=== PATIENT | female | born 1990 | race Two or more races ===

== ENCOUNTER 2022-01-29 13:13 | Emergency (ER) | payer BC ==
[2022-01-29 13:40] VITALS: BP 131/68; PULSE 97; TEMP 98; BMI 33.9
[2022-01-29] MEDS ORDERED: ACETAMINOPHEN 500 MG TABLET (FP) PO ONE (15:42)
[2022-01-29 18:58] LABS: BASO % 0.2 % (0-2.0); EOS % 0.1 % (0-4.5); HEMATOCRIT 31.3 % (32.4-45.2); HEMOGLOBIN 9.9 GM/dL (10.7-15.3); LYMPH % 4.2 % (8-40); MCH 20.1 pg (25.7-33.7); MCHC 31.7 g/dl (32.0-36.0); MEAN CELL VOLUME 63.4 fl (80-96); MEAN PLT VOLUME 8.4 fl (7.5-11.1); MONO % 8.8 % (3.8-10.2); NEUT % 86.7 % (42.8-82.8); PLATELET COUNT 345 10^3/uL (134-434); RBC 4.94 M/mm3 (3.60-5.2); RDW 21.9 % (11.6-15.6); WHITE BLOOD COUNT 5.2 K/mm3 (4.0-10.0)
[2022-01-29 19:29] LABS: BLOOD UREA NITROGEN 6.1 mg/dL (7-18); CALCIUM 9.2 mg/dL (8.5-10.1)
[2022-01-29 19:33] LABS: ANISOCYTOSIS 3+; CREATININE 0.6 mg/dL (0.55-1.3); MACROCYTOSIS 0; OVALOCYTE 1+; TARGET CELLS 1+
[2022-01-29 19:41] LABS: HCG,QUALITATIVE URINE Positive
[2022-01-29] MEDS ORDERED: ACETAMINOPHEN 500 MG TABLET (FP) ONE (19:57)
[2022-01-29 20:05] LABS: EPI CELLS 34 /uL (0-25.1); HYALINE CASTS 5 /uL (0-3.1); PH,URINE 5.5 (5.0-8.0); URINE APPEARANCE CLOUDY; URINE BACTERIA 1099 /uL (0-1359); URINE BILIRUBIN NEGATIVE (NEGATIVE); URINE COLOR YELLOW; URINE GLUCOSE (UA) NEGATIVE (NEGATIVE); URINE KETONE 1+ (NEGATIVE); URINE LEUK ESTERASE 1+ (NEGATIVE); URINE NITRITE NEGATIVE (NEGATIVE); URINE PROTEIN TRACE (NEGATIVE); URINE RBC 18 /uL (0-23.9); URINE UROBILINOGEN 0.2 mg/dL (0.2-1.0); URINE WBC 60 /uL (0-25.8)
== END 2022-01-29 22:11 | disposition home or self-care (01) ==
LOC: JER 13:13
DX: O26.891 Other specified pregnancy related conditions, first trimester (principal); R10.9 Unspecified abdominal pain; Z3A.01 Less than 8 weeks gestation of pregnancy
CPT/HCPCS: 36415; 76817-TC; 80048; 81003; 84702; 84703; 85025; 86850; 86900; 86901; 87086; 99284-25

== ENCOUNTER 2022-05-17 22:39 | Emergency (ER) | payer BC ==
[2022-05-17 22:49] VITALS: BMI 34.8
[2022-05-18 01:56] VITALS: BP 124/62; PULSE 69; RESP 16; TEMP 97.9
== END 2022-05-18 01:36 | disposition home or self-care (01) ==
LOC: JER 22:39
DX: O20.8 Other hemorrhage in early pregnancy (principal); Z3A.23 23 weeks gestation of pregnancy
CPT/HCPCS: 99283-25

== ENCOUNTER 2022-09-25 08:00 | Inpatient (IN) | payer BC ==
[2022-09-25] MEDS ORDERED: CEFAZOLIN 2 GM in DEXTROSE 5%-WATER - 50 ML IVPB ONE (08:52)
[2022-09-25] MEDS ORDERED: CEFAZOLIN 1 GM/D5W 1 GM/50 ML BAG IVPB SCH (10:00)
[2022-09-25] MEDS ORDERED: AMPICILLIN - 2 GM in SODIUM CHLORIDE 100 ML IVPB ONE (10:14)
[2022-09-25 10:20] VITALS: BMI 38.5
[2022-09-25] MEDS: OXYTOCIN 30 UNITS in 0.9% NS 30 UNIT/500 ML INFUS.BAG IVPB SCH (10:30)
[2022-09-25] MEDS: ELECTROLYTE-148 SOLN 1,000 ML IV SCH (10:30)
[2022-09-25] MEDS ORDERED: DINOPROSTONE 10 MG VAGINAL SUPPOSITORY VG ONE (10:45)
[2022-09-25] MEDS ORDERED: AMPICILLIN SODIUM 2 GM VIAL ONE (16:53)
[2022-09-25] MEDS ORDERED: AMPICILLIN SODIUM 1 GM VIAL ONE (21:31)
[2022-09-25] MEDS: AMPICILLIN - 1 GM in SODIUM CHLORIDE 100 ML IVPB SCH (21:37)
[2022-09-26] MEDS ORDERED: SODIUM CHLORIDE 200 ML IVPB ONE (01:13)
[2022-09-26] MEDS ORDERED: AMPICILLIN SODIUM 1 GM VIAL ONE ×4 (01:13→15:06)
[2022-09-26] MEDS: AMPICILLIN - 1 GM in SODIUM CHLORIDE 100 ML IVPB SCH ×8 (01:21→23:28)
[2022-09-26] MEDS ORDERED: SODIUM CHLORIDE 100 ML IVPB ONE (05:13)
[2022-09-26] MEDS: ELECTROLYTE-148 SOLN 1,000 ML IV SCH (15:00)
[2022-09-26] MEDS ORDERED: ACETAMINOPHEN 325 MG TABLET (FP) ONE (16:22)
[2022-09-26] MEDS ORDERED: CITRIC ACID/SODIUM CITRATE 30 ML UNIT-DOSE CUP PO ONE (17:34)
[2022-09-26] MEDS ORDERED: ACETAMINOPHEN 325 MG TABLET (FP) PO ONE (17:34)
[2022-09-26] MEDS ORDERED: CEFAZOLIN SODIUM 2 GM VIAL ONE (18:25)
[2022-09-26] MEDS ORDERED: OXYTOCIN 20 UNITS in 0.9% NS 20 UNIT/1,000 ML INFUS.BAG IV ONE (18:25)
[2022-09-26] MEDS ORDERED: morphine SULFATE (PF) 1 MG/2 ML SYRINGE ONE (18:27)
[2022-09-26] MEDS ORDERED: FENTANYL CITRATE/PF 50 MCG/ML VIAL ONE (18:27)
[2022-09-26] MEDS ORDERED: ONDANSETRON 4 MG/2 ML VIAL ONE (18:27)
[2022-09-26] MEDS ORDERED: KETOROLAC TROMETHAMINE 30 MG/1 ML VIAL ONE (18:27)
[2022-09-26] MEDS ORDERED: OXYTOCIN 10 UNITS/ML VIAL ONE (18:53)
[2022-09-26] MEDS ORDERED: METHYLERGONOVINE MALEATE 0.2 MG/1 ML AMP IM PRN (19:54)
[2022-09-26] MEDS ORDERED: ONDANSETRON 4 MG/2 ML VIAL IVPUSH PRN (19:56)
[2022-09-26] MEDS ORDERED: IBUPROFEN 800 MG/8 ML IJ IVPB PRN ×2 (19:57→23:49)
[2022-09-26] MEDS ORDERED: ACETAMINOPHEN 1000 MG/100 ML BAG IVPB SCH (20:00)
[2022-09-26] MEDS ORDERED: OXYTOCIN 20 UNITS in 0.9% NS 20 UNIT/1,000 ML INFUS.BAG IV SCH (20:00)
[2022-09-26] MEDS ORDERED: IBUPROFEN 800 MG/8 ML IJ IVPB SCH (20:00)
[2022-09-26] MEDS: OXYTOCIN 30 UNITS in 0.9% NS 30 UNIT/500 ML INFUS.BAG IVPB SCH (23:27)
[2022-09-26] MEDS ORDERED: ACETAMINOPHEN 1000 MG/100 ML BAG IVPB PRN (23:49)
[2022-09-27] MEDS: SIMETHICONE 80 MG TAB.CHEW (FP) PO PRN ×2 (00:53→20:04)
[2022-09-27] MEDS: FAMOTIDINE 20 MG TABLET PO SCH (05:03)
[2022-09-27 07:53] VITALS: RESP 18
[2022-09-27] MEDS ORDERED: oxyCODONE HCL 5 MG TABLET PO PRN ×2 (07:54)
[2022-09-27 09:05] LABS: BASO % 0.6 % (0-2.0); EOS % 0.3 % (0-4.5); HEMATOCRIT 28.8 % (32.4-45.2); HEMOGLOBIN 9.8 GM/dL (10.7-15.3); LYMPH % 13.4 % (8-40); MCH 27.8 pg (25.7-33.7); MCHC 34.2 g/dl (32.0-36.0); MEAN CELL VOLUME 81.3 fl (80-96); MEAN PLT VOLUME 8.9 fl (7.5-11.1); MONO % 4.4 % (3.8-10.2); NEUT % 81.3 % (42.8-82.8); PLATELET COUNT 149 10^3/uL (134-434); RBC 3.54 M/mm3 (3.60-5.2); RDW 22.7 % (11.6-15.6); WHITE BLOOD COUNT 7.6 K/mm3 (4.0-10.0)
[2022-09-27 09:58] LABS: ANISOCYTOSIS 2+; MACROCYTOSIS 0; OVALOCYTE 1+
[2022-09-27] MEDS ORDERED: IBUPROFEN 600 MG TABLET (FP) PO PRN (15:43)
[2022-09-27] MEDS ORDERED: ACETAMINOPHEN 325 MG TABLET (FP) PO PRN (15:43)
[2022-09-27] MEDS ORDERED: BISACODYL 10 MG SUPP.RECT RC PRN (19:54)
[2022-09-27] MEDS: IBUPROFEN 600 MG TABLET (FP) PO PRN (20:05)
[2022-09-28] MEDS: IBUPROFEN 600 MG TABLET (FP) PO PRN (04:23)
[2022-09-28] MEDS: FAMOTIDINE 20 MG TABLET PO SCH (09:21)
[2022-09-28 10:50] VITALS: BP 128/81; PULSE 91; TEMP 98
== END 2022-09-28 13:00 | disposition home or self-care (01) | DRG 540 ==
LOC: JLDR 08:00 → J3W 09-26 22:30
PROVIDERS: ADMIT Obstetrics & Gynecology; ATTEND Obstetrics & Gynecology
PROC: 10D00Z1 Extraction of Products of Conception, Low, Open Approach (ICD-10-PCS; principal; 2022-09-26)
DX: O48.0 Post-term pregnancy (principal); O24.429 Gestational diabetes mellitus in childbirth, unspecified control; O36.60X0 Maternal care for excessive fetal growth, unspecified trimester, not applicable or unspecified; O61.9 Failed induction of labor, unspecified; Z3A.40 40 weeks gestation of pregnancy; Z37.0 Single live birth
CPT/HCPCS: 36415; 82962; 85025; 88307-TC; C9803-CS; U0003; U0005

== ENCOUNTER 2023-11-29 14:27 | Emergency (ER) | payer OTHER ==
[2023-11-29 14:35] VITALS: BP 122/76; PULSE 83; RESP 18; TEMP 98; BMI 33.2
[2023-11-29 16:35] LABS: THROAT:GRP A STREP NOT DETECTED (NOTDETECTED)
== END 2023-11-29 17:23 | disposition home or self-care (01) ==
LOC: JERFT 14:27 → JER 14:27 → JERFT 17:23
DX: R05.1 Acute cough (principal); R07.89 Other chest pain; R06.09 Other forms of dyspnea; Z20.822 Contact with and (suspected) exposure to COVID-19
CPT/HCPCS: 0241U-QW; 71046-TC-FY; 87651; 99284-25